=== PATIENT | male | born 1955 | race Caucasian/White ===

== ENCOUNTER 2018-09-06 07:35 | Day surgery (SDC) | payer MEDICARE ==
[~2018-09-06 07:35] MED LIST: BUPIVACAINE HCL 0.75% INJ/PF (7.5 MG/1 ML) 10 ML SDV OD PRN; KETOROLAC TROMETHAMINE 0.45% 4 DROP/0.4 ML DROPERETTE OD PRN; LIDOCAINE 4% INJ/PF (40 MG/ML) 5 ML AMPUL OD PRN; MIDAZOLAM 2 MG/2 ML INJ ONE
[2018-09-06] MEDS ORDERED: EPINEPHRINE INJ/PF 1 MG/1 ML AMPULE ONE (07:44)
[2018-09-06] MEDS ORDERED: CHONDR SU A NA/HYALUR INTRAOC KIT (SURGICARE) ONE (07:45)
[2018-09-06] MEDS ORDERED: LIDOCAINE 1% INJ-PF (10 MG/ML) 30 ML SDV ONE (07:45)
[2018-09-06] MEDS: CYCLOPENTOLATE 0.2%/PHENYLEPHRINE 1% OPH SOLN 2 ML OD PRN ×3 (07:51→08:12)
[2018-09-06] MEDS: TROPICAMIDE 1% OPH SOLN 3 ML OD PRN ×3 (07:51→08:13)
[2018-09-06] MEDS: BESIFLOXACIN HCL 0.6% OPH SUSP 5 ML BOTTLE OD PRN ×4 (07:51→08:49)
[2018-09-06] MEDS: TETRACAINE HCL 0.5% OPH SOLN 0.6 ML DROPERETTE OD PRN ×2 (07:51→08:15)
[2018-09-06] MEDS: DORZOLAMIDE HCL 2%/TIMOLOL MALEAT 0.5% OPH SOLN 10 ML OD PRN ×2 (08:49)
--- NOTE | 2018-09-06 10:37 | [facility] OPERATIVE REPORT E ---
[facility] Operative Report NAME: RAI CHIN AGE: 63Y DATE OF SURGERY: 09/06/2018 ROOM: PREOPERATIVE DIAGNOSIS: Cataract, right eye. POSTOPERATIVE DIAGNOSIS: Cataract, right eye. PROCEDURE PERFORMED: Phacoemulsification with posterior chamber intraocular lens, right eye. SURGEON: BOBBY CABA M.D. ANESTHESIA: Topical with MAC. INDICATIONS FOR SURGERY: Difficulty driving at night. Best corrected visual acuity 20/50. PROCEDURE: The patient was brought to the operating room and placed on the operative table. Following tetracaine drops, topical anesthesia was administered. This consisted of instrument wipe pledgets soaked in a solution of 4% Xylocaine mixed with 0.75% Marcaine in a 1:2 ratio. A 2 x 1 cm pledget was placed in the superior fornix. A 1 x 1 cm pledget was placed in the inferior fornix. The eye was patched shut for 5 minutes. The patch was removed. The eye was sterilely prepped and draped in the usual manner. Lid speculum was placed in the eye. The pledgets were removed and 4-0 black silk sutures were placed around the superior and the inferior rectus muscles to be used as traction. A conjunctival peritomy was made at the 10 o'clock position. Hemostasis was obtained with bipolar cautery. A posterior limbal groove was created using a crescent knife and dissected anteriorly towards the cornea. A sharp point blade was used to create a paracentesis site at the 2 o'clock position. A 2.4 mm keratome was used to enter the anterior chamber through the groove. Viscoelastic was injected into the anterior chamber. An anterior capsulotomy was performed using Utrata forceps in a capsulorrhexis fashion. Hydrodissection and hydrodelineation were performed. Phacoemulsification was performed in [id number] technique. Total phaco time was 6.90 CDE. Following this, the I/A unit was used to remove residual cortex. Viscoelastic was injected into the capsular bag. Intraocular lens model SN60WF, 20.0 diopters, serial number [id number], was placed in the capsular bag. The I/A unit was used to remove residual viscoelastic. The wound was seen to be watertight under high and low pressure, and no sutures were placed. The intraocular lens was well centered. The pressure was adjusted in the eye to normal pressure. The 4-0 black silk sutures and lid speculum were removed. The eye was shielded after Besivance drops were placed. The patient tolerated the procedure well and was sent to the recovery room in good condition. DICTATING PHYSICIAN: BOBBY CABA M.D. [id number] PHY#: [id number] ID: [id number] JOB#: [id number] ACCT: [id number] cc:BOBBY CABA M.D. >
--- NOTE | 2018-09-06 10:37 | [facility] DISCHARGE SUMMARY E ---
[facility] Discharge Summary NAME: RAI CHIN AGE: 63Y ADMITTED: 09/06/2018 DISCHARGED: 09/06/2018 FINAL DIAGNOSIS: Cataract, right eye. HOSPITAL COURSE: The patient is a 63-year-old gentleman who underwent uneventful cataract extraction with intraocular lens implant, right eye, on 09/06/2018. He will be discharged to home. He was instructed to resume preoperative medications; to take Tylenol as needed for discomfort; to keep his eye shielded; to use Besivance, Durezol, and Ilevro at 3 p.m. and 8 p.m.; and to follow up in my office in 1 day. DICTATING PHYSICIAN: BOBBY CABA M.D. [id number] PHY#: [id number] ID: [id number] JOB#: [id number] ACCT: [id number] cc:BOBBY CABA M.D. >
== END 2018-09-06 09:32 | disposition home or self-care (01) ==
LOC: SC 07:35
PROVIDERS: ATTEND Ophthalmology
DX: H25.813 Combined forms of age-related cataract, bilateral (principal); H35.363 Drusen (degenerative) of macula, bilateral; H18.51 Endothelial corneal dystrophy; H17.89 Other corneal scars and opacities; H52.4 Presbyopia; J44.9 Chronic obstructive pulmonary disease, unspecified; M19.90 Unspecified osteoarthritis, unspecified site; F17.210 Nicotine dependence, cigarettes, uncomplicated; I10 Essential (primary) hypertension; K21.9 Gastro-esophageal reflux disease without esophagitis; E78.00 Pure hypercholesterolemia, unspecified; I47.2 Ventricular tachycardia; I25.2 Old myocardial infarction; Z79.899 Other long term (current) drug therapy; Z95.0 Presence of cardiac pacemaker; Z91.041 Radiographic dye allergy status
CPT/HCPCS: 66984; V2632; J2250; J3490 ×4; A9270; J0171; 142

== ENCOUNTER 2018-12-13 08:08 | Day surgery (SDC) | payer MEDICARE ==
[~2018-12-13 08:08] MED LIST changes: -BUPIVACAINE HCL 0.75% INJ/PF (7.5 MG/1 ML) 10 ML SDV OD PRN; +BUPIVACAINE HCL 0.75% INJ/PF (7.5 MG/1 ML) 10 ML SDV OS PRN; -KETOROLAC TROMETHAMINE 0.45% 4 DROP/0.4 ML DROPERETTE OD PRN; -LIDOCAINE 4% INJ/PF (40 MG/ML) 5 ML AMPUL OD PRN; +LIDOCAINE 4% INJ/PF (40 MG/ML) 5 ML AMPUL OS PRN
[2018-12-13] MEDS ORDERED: EPINEPHRINE INJ/PF 1 MG/1 ML AMPULE ONE (09:02)
[2018-12-13] MEDS ORDERED: CHONDR SU A NA/HYALUR INTRAOC KIT (SURGICARE) ONE (09:02)
[2018-12-13] MEDS: CYCLOPENTOLATE 0.2%/PHENYLEPHRINE 1% OPH SOLN 2 ML OS PRN ×3 (09:07→09:32)
[2018-12-13] MEDS: TROPICAMIDE 1% OPH SOLN 3 ML OS PRN ×3 (09:07→09:32)
[2018-12-13] MEDS: BESIFLOXACIN HCL 0.6% OPH SUSP 5 ML BOTTLE OS PRN ×4 (09:08→10:13)
[2018-12-13] MEDS: KETOROLAC TROMETHAMINE 0.45% 4 DROP/0.4 ML DROPERETTE OS PRN ×2 (09:08→10:35)
[2018-12-13] MEDS: TETRACAINE HCL 0.5% OPH SOLN 0.6 ML DROPERETTE OS PRN ×2 (09:09→09:33)
[2018-12-13] MEDS ORDERED: VANCOMYCIN HCL INJ 1000 MG VIAL ONE (09:31)
[2018-12-13] MEDS: LIDOCAINE 1% INJ-PF (10 MG/ML) 30 ML SDV ONE ×2 (09:56→09:58)
[2018-12-13] MEDS: NORMAL SALINE INJ/PF 0.9% 10 ML SDV ONE ×2 (10:12)
[2018-12-13] MEDS: DORZOLAMIDE HCL 2%/TIMOLOL MALEAT 0.5% OPH SOLN 10 ML OS PRN ×2 (10:13)
[2018-12-13] MEDS ORDERED: ALBUTEROL SULFATE 0.083% NEB 2.5 MG/3 ML AMPUL NEB ONE (10:24)
[2018-12-13] MEDS ORDERED: ACETAMINOPHEN 325 MG TABLET ONE (10:38)
--- NOTE | 2018-12-13 13:03 | [facility] OPERATIVE REPORT E ---
[facility] Operative Report NAME: RAI CHIN AGE: 63Y DATE OF SURGERY: 12/13/2018 ROOM: PREOPERATIVE DIAGNOSIS: Cataract, left eye. POSTOPERATIVE DIAGNOSIS: Cataract, left eye. PROCEDURE PERFORMED: Phacoemulsification with posterior chamber intraocular lens, left eye. SURGEON: BOBBY CABA M.D. ANESTHESIA: Topical with MAC. INDICATIONS FOR SURGERY: Difficulty driving. PROCEDURE: The patient was brought to the operating room and placed on the operative table. Following tetracaine drops, topical anesthesia was administered. This consisted of instrument wipe pledgets soaked in a solution of 4% Xylocaine mixed with 0.75% Marcaine in a 1:2 ratio. A 2 x 1 cm pledget was placed in the superior fornix. A 1 x 1 cm pledget was placed in the inferior fornix. The eye was patched shut for 5 minutes. The patch was removed. The eye was sterilely prepped and draped in the usual manner. Lid speculum was placed in the eye. The pledgets were removed and 4-0 black silk sutures were placed around the superior and the inferior rectus muscles to be used as traction. A conjunctival peritomy was made at the 10 o'clock position. Hemostasis was obtained with bipolar cautery. A posterior limbal groove was created using a crescent knife and dissected anteriorly towards the cornea. A sharp point blade was used to create a paracentesis site at the 2 o'clock position. A 2.4 mm keratome was used to enter the anterior chamber through the groove. Viscoelastic was injected into the anterior chamber. An anterior capsulotomy was performed using Utrata forceps in a capsulorrhexis fashion. Hydrodissection and hydrodelineation were performed. Phacoemulsification was performed in pplama-[id number]-huafkds technique. Total phaco time was 5.69 CDE. Following this, the I/A unit was used to remove residual cortex. Viscoelastic was injected into the capsular bag. Intraocular lens model SN60WF, 20.0 diopters, serial number [id number], was placed in the capsular bag. The I/A unit was used to remove residual viscoelastic. The intraocular lens was well centered. The pressure was adjusted in the eye to normal pressure. recovery room in good condition. A single horizontal 10-0 nylon suture was placed in the incision at the end of the surgery. 0.25 mg in 2.5 mL of vancomycin was injected into the inferior conjunctiva. The 4-0 black silk sutures and lid speculum were removed. The eye was shielded after Besivance and cosopt drops were placed. The patient tolerated the procedure well and was sent to the recovery room in good condition. A DICTATING PHYSICIAN: BOBBY CABA M.D. [id number] PHY#: [id number] ID: [id number] JOB#: [id number] ACCT: [id number] cc:BOBBY CABA M.D. > MTDD
--- NOTE | 2018-12-13 13:03 | [facility] DISCHARGE SUMMARY E ---
[facility] Discharge Summary NAME: RAI CHIN AGE: 63Y ADMITTED: 12/13/2018 DISCHARGED: 12/13/2018 FINAL DIAGNOSIS: Cataract, left eye. HOSPITAL COURSE: The patient is a 63-year-old gentleman who underwent uneventful cataract extraction with intraocular lens implant, left eye, on 12/13/2018. He will be discharged to home. He was instructed to resume preoperative medications; to take Tylenol as needed for discomfort; to keep his eye shielded; to use Durezol, Ilevro, and Besivance at 3 p.m. and 8 p.m.; and to follow up in my office in 1 day. DICTATING PHYSICIAN: BOBBY CABA M.D. [id number] [id number] PHY#: [id number] ID: [id number] JOB#: [id number] ACCT: [id number] cc:BOBBY CABA M.D. >
== END 2018-12-13 11:04 | disposition home or self-care (01) ==
LOC: SC 08:08
PROVIDERS: ATTEND Ophthalmology
DX: H25.812 Combined forms of age-related cataract, left eye (principal); H35.3131 Nonexudative age-related macular degeneration, bilateral, early dry stage; H01.002 Unspecified blepharitis right lower eyelid; Z96.1 Presence of intraocular lens; I25.2 Old myocardial infarction; I10 Essential (primary) hypertension; E78.00 Pure hypercholesterolemia, unspecified; J44.9 Chronic obstructive pulmonary disease, unspecified; F17.210 Nicotine dependence, cigarettes, uncomplicated; I47.2 Ventricular tachycardia; Z95.0 Presence of cardiac pacemaker; Z91.040 Latex allergy status; Z79.899 Other long term (current) drug therapy
CPT/HCPCS: 66984; V2632; A9270 ×3; J2250; J3490 ×5; J0171; J3370; 142

== ENCOUNTER 2020-01-03 16:42 | Emergency (ER) | payer MEDICARE ==
[2020-01-03] MEDS ORDERED: NORMAL SALINE 500 ML IV ONE (16:50)
--- NOTE | 2020-01-03 16:52 | ER Document Report ---
ED General - General Chief Complaint: Syncope Stated Complaint: POSSIBLE SYNCOPE Time Seen by Provider: 01/03/20 16:48 Primary Care Provider: BAMBI PERRY MD [Primary Care Provider] - Follow up as needed Notes: Patient presents with generalized weakness. He was at a storage facility with family because he is moving, became very weak buckled at the knees and was lowered to the ground. He now says he feels fine. He was found hypotensive with no radial pulse by EMS. Apparently he was hospitalized at [facility] for possible heart failure/COPD? Is on steroids was diuresed in the hospital and essentially left AGAINST MEDICAL ADVICE. Immediate upon presentation to [place] ED says "I do not want a stay here unable to spend the night." He denies chest pain abdominal pain shortness of breath cough sputum production fever. The patient has NO history of travel to high-risk locations for COVID-19 or contact with persons under investigation for or confirmed positive for COVID-19. TRAVEL OUTSIDE OF THE [place] IN LAST 30 DAYS: No - Related Data Allergies/Adverse Reactions: contrast dye for heart cath Allergy (Intermediate, Uncoded 01/03/20 17:09) rash Past Medical History - Social History Smoking Status: Current Every Day Smoker Cigarette use (# per day): Yes - The patient ED visit today was directly related to their abuse of tobacco. Family History: None - Past Medical History Cardiac Medical History: Reports: Hx Heart Attack - 2006, Hx Hypertension Pulmonary Medical History: Denies: Hx Asthma Neurological Medical History: Denies: Hx Cerebrovascular Accident, Hx Seizures GI Medical History: Denies: Hx Hepatitis, Hx Hiatal Hernia, Hx Ulcer Infectious Medical History: Denies: Hx Hepatitis Past Surgical History: Reports: Hx Pacemaker. Denies: Hx Open Heart Surgery Review of Systems - Review of Systems Notes: REVIEW OF SYSTEMS GEN: Weakness gait dysfunction ENT: Denies sore throat, nasal discharge, ear pain EYES: Denies blurry vision, eye pain, discharge CV: Denies chest pain, palpitations, edema RESP: Denies cough, shortness of breath, wheezing GI: Denies abdominal pain, nausea, vomiting, diarrhea MSK: Denies joint pain/swelling, edema, SKIN: Denies rash, skin lesions LYMPH: Denies swollen glands/lymph nodes NEURO: Denies headache, focal weakness or numbness, dizziness PSYCH: Denies depression, suicidal or homicidal ideation PHYSICAL EXAMINATION General: No acute distress, well-nourished Head: Atraumatic, normocephalic ENT: Mouth normal, oropharynx moist, no exudates or tonsillar enlargement Eyes: Conjunctiva normal, pupils equal, lids normal Neck: No JVD, supple, no guarding CVS: Normal rate, regular rhythm, no murmurs Resp: Scant bibasilar crackles intermittent cough GI: Nondistended, soft, no tenderness to palpation, no rebound or guarding Ext: No deformities, no edema, normal range of motion in upper and lower ext Back: No CVA or midline TTP Skin: No rash, warm Lymphatic: No lymphadeopathy noted Neuro: Awake, alert. Face symmetric. GCS 15. Physical Exam - Vital signs Vitals: Resp 19 01/03/20 16:46 Course - Re-evaluation Re-evalutation: 01/03/20 17:04 [age]-year-old male with CHF COPD presents with hypotension and weakness. He was in the hospital being diuresed, so could be dry could have acute kidney injury arrhythmia. He denies all symptoms. EMS said something about him trying to minimize because he does not want to stay in the hospital so we had a cory discussion about him being honest with me about his symptoms and he still denies any symptoms including feeling weak. There is no LOC. His EKG is normal rhythm with no acute ischemia. His mental status is normal. He has no fever or signs of infection so I think sepsis is unlikely. Will check a broad lab work-up including lactic and BNP and observe him carefully. Will give small fluid bolus. 01/03/20 19:17 Talk to . Patient apparently had a pallor episode with shaking and was essentially minimally responsive for about 2 minutes. Possible syncope. Pacemaker interrogation does not show culprit lactic is elevated but patient is improved with fluids. Pressure came up. No symptoms. After lots of convincing from myself and his he is agreed to be transferred back to [facility] for further cardiac work-up and this was arranged. - Vital Signs Vital signs: Temp Pulse Resp BP Pulse Ox 97.9 F 70 13 102/64 93 01/03/20 18:16 01/03/20 17:09 01/03/20 18:01 01/03/20 18:16 01/03/20 18:16 - Laboratory Result Diagrams: 01/03/20 16:50 01/03/20 16:50 Laboratory results interpreted by me: 01/03/20 01/03/20 01/03/20 16:50 16:50 16:50 WBC 10.8 H Lymph % (Auto) 9.1 L Absolute Neuts (auto) 8.9 H Seg Neutrophils % 82.3 H Chloride 94 L BUN 42 H Creatinine 2.04 H Est GFR ( Amer) 40 L Est GFR (MDRD) Non-Af 33 L Lactic Acid 5.1 H NT-Pro-B Natriuret Pep 01/03/20 16:50 WBC Lymph % (Auto) Absolute Neuts (auto) Seg Neutrophils % Chloride BUN Creatinine Est GFR ( Amer) Est GFR (MDRD) Non-Af Lactic Acid NT-Pro-B Natriuret Pep 2570 H - Diagnostic Test Radiology reviewed: Image reviewed, Reports reviewed - EKG Interpretation by Me EKG shows normal: Sinus rhythm Rate: Normal - Schema change Critical Care Note - Critical Care Note Total time excluding time spent on procedures (mins): 32 Comments: The above patient is critically ill. Not including procedures, but including direct re-evaluations, speaking with patient and/or consultants, interpreting re sults, and documenting, I spent the total amount of minute listed listed above on critical care time Discharge - Discharge Clinical Impression: Syncope Qualifiers: Syncope type: unspecified Qualified Code(s): R55 - Syncope and collapse Condition: Good Disposition: [facility] Referrals: BAMBI PERRY MD [Primary Care Provider] - Follow up as needed
[2020-01-03 17:24] LABS: ABSOLUTE MONOCYTES (AUTO) 0.9 10^3/uL (0.1-1.4); ABSOLUTE NEUT (AUTO) 8.9 10^3/uL (1.7-8.2); BASOPHILS % (AUTO) 0.2 % (0-2); HEMATOCRIT 42.7 % (37.9-51.0); HEMOGLOBIN 14.8 g/dL (13.5-17.0); LYMPHOCYTES % (AUTO) 9.1 % (13-45); MEAN CORPUSCULAR HEMOGLOBIN 32.1 pg (27.0-33.4); MEAN CORPUSCULAR HGB CONC 34.6 g/dL (32.0-36.0); MEAN CORPUSCULAR VOLUME 93 fl (80-97); MONOCYTES % (AUTO) 8.4 % (3-13); PLATELET COUNT 282 10^3/uL (150-450); SEGMENTED NEUTROPHILS % (AUTO) 82.3 % (42-78); TOTAL CELLS COUNTED % (AUTO) 100 %; WHITE BLOOD COUNT 10.8 10^3/uL (4.0-10.5)
[2020-01-03 17:32] LABS: ANION GAP 18 (5-19); BLOOD UREA NITROGEN 42 mg/dL (7-20); CALCIUM 9.2 mg/dL (8.4-10.2); CARBON DIOXIDE 26 mmol/L (22-30); CHLORIDE 94 mmol/L (98-107); GLUCOSE 90 mg/dL (75-110); POTASSIUM 3.7 mmol/L (3.6-5.0)
[2020-01-03 17:44] LABS: TROPONIN I 0.023 ng/mL
--- NOTE | 2020-01-03 17:58 | RADIOLOGY REPORT (SQ) ---
EXAM DESCRIPTION: CHEST SINGLE VIEW COMPLETED DATE/TIME: 01/03/2020 5:51 pm REASON FOR STUDY: syncopal COMPARISON: None. EXAM PARAMETERS: NUMBER OF VIEWS: One view. TECHNIQUE: Single frontal radiographic view of the chest acquired. RADIATION DOSE: NA LIMITATIONS: None. FINDINGS: LUNGS AND PLEURA: No opacities, masses or pneumothorax. No pleural effusion. MEDIASTINUM AND HILAR STRUCTURES: No masses. Contour normal. HEART AND VASCULAR STRUCTURES: Heart normal in size. Normal vasculature. BONES: No acute findings. HARDWARE: Left-sided dual lead pacemaker OTHER: No other significant finding. IMPRESSION: NO ACUTE RADIOGRAPHIC FINDING IN THE CHEST. TECHNICAL DOCUMENTATION: JOB ID: [id number] 2010 [employer]- All Rights Reserved Reading location - IP/workstation name: [id number]
[2020-01-03 19:29] LABS: APPEARANCE,URINE SLIGHTLY-CLOUDY; BILIRUBIN,URINE NEGATIVE (NEGATIVE); COLOR,URINE YELLOW; GLUCOSE, URINE NEGATIVE (NEGATIVE); KETONES,URINE NEGATIVE (NEGATIVE); LEUKOCYTE ESTERASE,URINE NEGATIVE (NEGATIVE); NITRITE,URINE NEGATIVE (NEGATIVE); PROTEIN,URINE NEGATIVE (NEGATIVE)
--- NOTE | 2020-01-03 20:01 | EKG REPORT ---
SEVERITY:- ABNORMAL ECG - ATRIAL-PACED COMPLEXES LEFT ATRIAL ABNORMALITY NONSPECIFIC INTRAVENTRICULAR CONDUCTION DELAY ANTERIOR INFARCT, AGE INDETERMINATE : Confirmed by: Vane Ohara MD 03-Jan-2020 20:00:50
[2020-01-03 20:57] VITALS: BP 96/53
== END 2020-01-03 21:17 | disposition short-term general hospital (02) ==
LOC: ER 16:42
DX: R55 Syncope and collapse (principal); I95.9 Hypotension, unspecified; I11.0 Hypertensive heart disease with heart failure; I50.9 Heart failure, unspecified; J44.9 Chronic obstructive pulmonary disease, unspecified; I10 Essential (primary) hypertension; I25.2 Old myocardial infarction; R26.9 Unspecified abnormalities of gait and mobility; R09.89 Other specified symptoms and signs involving the circulatory and respiratory systems; R05 Cough; R23.1 Pallor; R41.82 Altered mental status, unspecified; Z95.0 Presence of cardiac pacemaker; F17.210 Nicotine dependence, cigarettes, uncomplicated; Z91.041 Radiographic dye allergy status
CPT/HCPCS: 93005; 99291; 96360; 36415; 82962; 83605; 85025; 80048; 81001; 84484; 83880; 71045; 93010; J7040